=== PATIENT | female | born 1980 | race Caucasian/White ===

== ENCOUNTER 2021-04-29 19:16 | Emergency (ER) | payer MEDICARE, MEDICAID ==
[~2021-04-29] VITALS: Ht 160 cm; Wt 98.2 kg
[~2021-04-29 19:16] MED LIST: CLON-528 PO; LITH300C43 PO
--- NOTE | 2021-04-29 19:52 | NUR ---
pt to room, assumed care
[2021-04-29] MEDS ORDERED: LIDOcaine 1% W/epiNEPHrine 1:200,000 10ml vial IJ ONE (20:25)
== END 2021-04-29 21:15 | disposition home or self-care (01) ==
LOC: ER 19:17
DX: N75.1 Abscess of Bartholin's gland (principal); F20.9 Schizophrenia, unspecified; F12.10 Cannabis abuse, uncomplicated; Z88.0 Allergy status to penicillin; Z79.899 Other long term (current) drug therapy
CPT/HCPCS: 56420; 99284

== ENCOUNTER 2024-09-10 15:33 | Emergency (ER) | payer MEDICAID ==
[~2024-09-10] VITALS: Ht 160 cm; Wt 104.8 kg
[~2024-09-10 15:33] MED LIST changes: -CLON-528 PO; +CLON-850 PO
[2024-09-10 15:38] VITALS: BP 197/109; PULSE 105; RESP 18; TEMP 97; O2SAT 99
== END 2024-09-10 16:45 | disposition home or self-care (01) ==
LOC: ER 15:34
DX: S00.01XA Abrasion of scalp, initial encounter (principal); F10.129 Alcohol abuse with intoxication, unspecified; F12.90 Cannabis use, unspecified, uncomplicated; F07.81 Postconcussional syndrome; F20.9 Schizophrenia, unspecified; Z88.0 Allergy status to penicillin; Z79.899 Other long term (current) drug therapy; Z90.49 Acquired absence of other specified parts of digestive tract; Y08.89XA Assault by other specified means, initial encounter; Y93.89 Activity, other specified; Y92.89 Other specified places as the place of occurrence of the external cause; Y99.8 Other external cause status; Y90.9 Presence of alcohol in blood, level not specified
CPT/HCPCS: 99283

== ENCOUNTER 2025-01-23 01:39 | Emergency (ER) | payer MEDICAID ==
[~2025-01-23] VITALS: Ht 160 cm; Wt 97.7 kg
[2025-01-23 01:48] VITALS: BP 148/87; PULSE 104; RESP 16; TEMP 98; O2SAT 98
== END 2025-01-23 05:18 | disposition left against medical advice (07) ==
LOC: ER 01:39
DX: Z00.00 Encounter for general adult medical examination without abnormal findings (principal); Z88.8 Allergy status to other drugs, medicaments and biological substances; Z53.21 Procedure and treatment not carried out due to patient leaving prior to being seen by health care provider